=== PATIENT | female | born 1970 | race Caucasian/White ===

== ENCOUNTER 2016-08-02 08:08 | Day surgery (SDC) | payer OTHER ==
[2016-07-24 17:15] VITALS: BMI 30.2
[2016-08-02] MEDS ORDERED: MIDAZOLAM HCL 2 MG/2 ML SINGLE DOSE VIAL ONE ×2 (09:33→11:42)
[2016-08-02] MEDS ORDERED: DEXAMETHASONE SOD PHOSPHATE/PF 10 MG/ML SDV ONE (09:33)
[2016-08-02] MEDS ORDERED: ROPIVACAINE HCL 0.5% 30ML VIAL ONE (09:33)
[2016-08-02] MEDS ORDERED: BUPIVACAINE HCL/EPINEPHRINE/PF 30 ML VIAL IJ ONE (10:24)
--- NOTE | 2016-08-02 11:40 | HP ---
Admitting History and Physical - Admission History of Present Illness: The patient is a 46 yo female who presents today for a repair of her right shoulder rotator cuff tear. She complaints of intermittent pain, mostly at night with sleeping. The patient recalls hurting herself several years ago. She denies any fevers, cough today. History Source: Patient Limitations to Obtaining History: No Limitations, Other ( at bedside to assist with exam.) - Past Medical History Cardiovascular: No: Deep Vein Thrombosis, HTN Pulmonary: No: Asthma, Bronchitis Gastrointestinal: No: Constipation, Gastritis Renal/: No: Hematuria, Renal Calculi ...LMP: 07/16/16 ...: No Heme/Onc: No: Bleeding Disorder - Past Surgical History Past Surgical History: Yes: None - Smoking History Smoking history: Never smoked Have you smoked in the past 12 months: No - Alcohol/Substance Use Hx Alcohol Use: No Home Medications - Allergies Allergies/Adverse Reactions: Allergies Allergy/AdvReac Type Severity Reaction Status Date / Time No Known Allergies Allergy Verified 08/02/16 09:08 - Home Medications Home Medications: Ambulatory Orders Multivitamin with Iron [Daily Morris with Iron] 1 each PO DAILY 07/24/16 Review of Systems - Review of Systems Constitutional: denies: Chills, Fever Neck: denies: Decreased ROM, Pain on Movement Cardiovascular: denies: Chest Pain, Edema, Palpitations Respiratory: denies: Cough, SOB Gastrointestinal: denies: Abdominal Pain, Constipation Genitourinary: denies: Burning, Dysuria Musculoskeletal: reports: Decreased ROM, Extremity Pain (right shoulder pain). denies: Back Pain, Joint Swelling Neurological: denies: Dizziness, Headache Hematology/Lymphatic: denies: Easily Bruised, Excessive Bleeding Physical Examination Vital Signs: Vital Signs Temperature 98.8 F 08/02/16 08:53 Pulse Rate 63 08/02/16 08:53 Respiratory Rate 17 08/02/16 08:53 Blood Pressure 97/59 08/02/16 08:53 O2 Sat by Pulse Oximetry (%) 98 08/02/16 08:53 Constitutional: Yes: Well Nourished, Calm Eyes: Yes: WNL, Conjunctiva Clear, EOM Intact HENT: Yes: WNL, Atraumatic, Normocephalic Neck: Yes: WNL, Supple, Trachea Midline Cardiovascular: Yes: WNL, Regular Rate and Rhythm Respiratory: Yes: WNL, Regular, CTA Bilaterally Gastrointestinal: Yes: WNL, Normal Bowel Sounds, Soft Extremities: Yes: Other (no pain with palpation, pt with nerve block.). No: Calf Tenderness, Deformity Edema: No Peripheral Pulses WNL: Yes Peripheral Pulses: Right Radial: 2+, Left Doralis Pedis: 2+ Neurological: Yes: WNL, Alert, Oriented ...Motor Strength: LLE, RUE, RLE Psychiatric: Yes: WNL, Alert, Oriented Problem List - Problems (1) Rotator cuff tear Assessment/Plan: Plan for repair of right rotator cuff tear today Continue npo DVT ppx with SCDs/early ambulation Code(s): M75.100 - UNSP ROTATR-CUFF TEAR/RUPTR OF UNSP SHOULDER, NOT TRAUMA Qualifiers: Laterality: right
[2016-08-02] MEDS ORDERED: ONDANSETRON 4 MG/2 ML VIAL ONE ×2 (11:58→13:40)
[2016-08-02] MEDS ORDERED: ONDANSETRON 4 MG/2 ML VIAL IVPUSH PRN (12:14)
[2016-08-02] MEDS ORDERED: LACTATED RINGERS SOLUTION 1,000 ML IV SCH (12:15)
[2016-08-02] MEDS ORDERED: oxyCODONE HCL 5 MG TABLET PO PRN ×3 (12:15→14:43)
[2016-08-02] MEDS ORDERED: oxyCODONE HCL 10 MG SUSTAINED ACTING TABLET PO ONE (12:47)
--- NOTE | 2016-08-02 12:53 | DS ---
Physical Examination Vital Signs: Vital Signs Temperature 98.8 F 08/02/16 08:53 Pulse Rate 63 08/02/16 08:53 Respiratory Rate 17 08/02/16 08:53 Blood Pressure 97/59 08/02/16 08:53 O2 Sat by Pulse Oximetry (%) 98 08/02/16 08:53 Discharge Summary Reason For Visit: ROTATOR CUFF TEAR RIGHT SHOULDER Condition: Good - Instructions Diet, Activity, Other Instructions: Post Operative Instructions: Shoulder Arthroscopy Dr Candido Koo 1. Pain following a Shoulder Arthroscopy is variable and can be significant. Some patients will have more pain than others. You have been provided with a prescription for medication that contains a narcotic. You are not allowed to drive while on this medication. You should NOT take Tylenol (Acetaminophen) when taking the pain medication ( it will result in an overdose). Feel free to take medications such as Ibuprofen or Naprosyn in addition to the pain medicine if you do not have any problems with the NSAID class of medications. 2. Apply ice to the shoulder for 15 minutes every hour. You may continue this for as many days as necessary. 3. You may find sleeping on an incline (reclining chair) to be more comfortable for the first few days. 4. You must remain in your sling at all times except when showering. The only exception to this is to allow you to stretch your elbow a few times a day to prevent your hand and forearm from swelling. 5. You are not to use your arm to reach for anything, lift anything or carry anything until instructed otherwise. 6. You may remove the bandages in 48 hours. You may shower at that point. 7. Place band-aids on the sutures after your shower.Do not put any creams or lotions on the incision until after the sutures are removed. 8. Please call the office to schedule a visit to have your sutures removed. 9. If for any reason you believe you may have an infection or are concerned, please feel free to call me. I can be reached through our office number 24 hours a day. 10. Please call our office with any questions; we will review the surgical findings during your post-operative visit. Disposition: HOME - Home Medications Comprehensive Discharge Medication List: Ambulatory Orders Multivitamin with Iron [Daily Morris with Iron] 1 each PO DAILY 07/24/16
--- NOTE | 2016-08-02 12:53 | OP ---
Operative Note - Note: Operative Date: 08/02/16 Pre-Operative Diagnosis: Right shoulder rotator cuff tear Operation: RSA, RCR Post-Operative Diagnosis: Same as Pre-op Surgeon: Candido Koo Anesthesia: General Operative Report Dictated: Yes
[2016-08-02 14:21] VITALS: TEMP 98.4
[2016-08-02 14:22] VITALS: PULSE 77
[2016-08-02 15:14] VITALS: BP 106/72
--- NOTE | 2016-08-02 17:33 | SURG ---
Surgery Bag Washer Note Bag Washer: Anel Vasquez PA-C Date of Service: 08/02/16 Diagnosis: Right shoulder rotator cuff tear Procedure: RSA, RCR I was present for the entirety of the operative procedure. For further detail, please refer to operative report. Visit type - Case Type Case Type: Scheduled Admission - Emergency Emergency Visit: No - New patient This patient is new to me today: Yes Date on this admission: 08/02/16 - Critical Care Critical Care patient: No
--- NOTE | 2016-08-07 13:12 | PATH ---
Surgical Pathology Report Patient Name: PRASANTH AWAN [facility]. Rec. #: [id number] /Age/Gender: 1970 (Age: 46) / F Account: [id number] Location: [facility] Taken: 08/02/2016 Received: 08/02/2016 Reported: 08/07/2016 Physicians: Candido Koo M.D. Specimen(s) Received SHAVINGS FROM RIGHT SHOULDER Clinical History Right shoulder rotator cuff repair Final Diagnosis SHOULDER, RIGHT, ARTHROSCOPIC SHAVINGS: FIBROSYNOVIAL TISSUE, CARTILAGE AND BONE. Electronically Signed Heidi Jensen M.D. Gross Description Received in formalin, labeled "shavings right shoulder," is a 3.0 x 2.0 x 0.3 cm. aggregate of schmitt-yellow soft tissue fragments. The specimen is submitted in toto in one cassette. /08/02/201608/02/2016
== END 2016-08-02 14:50 | disposition home or self-care (01) ==
LOC: FASU 08:08
PROVIDERS: ATTEND Orthopaedic Surgery
PROC: 0RNJ4ZZ Release Right Shoulder Joint, Percutaneous Endoscopic Approach (ICD-10-PCS; 2016-08-02)
PROC: 0LB14ZZ Excision of Right Shoulder Tendon, Percutaneous Endoscopic Approach (ICD-10-PCS; principal; 2016-08-02 10:00)
PROC: 0LS14ZZ Reposition Right Shoulder Tendon, Percutaneous Endoscopic Approach (ICD-10-PCS; 2016-08-02 10:00)
DX: M75.121 Complete rotator cuff tear or rupture of right shoulder, not specified as traumatic (principal); M75.51 Bursitis of right shoulder; M66.821 Spontaneous rupture of other tendons, right upper arm
CPT/HCPCS: 84703; 88304-TC; 94760